=== PATIENT | female | born 1980 | race African-American/Black ===

== ENCOUNTER 2024-05-25 02:21 | Emergency (ER) | payer MEDICAID, SELFPAY ==
[~2024-05-25] VITALS: Ht 152.4 cm; Wt 82.0 kg
[2024-05-25 02:31] VITALS: BP 200/130; TEMP 97.7; O2SAT 99
[2024-05-25 05:23] VITALS: PULSE 88; RESP 18
[2024-05-25] MEDS: TETANUS, DIPHTHERIA, PERTUSSIS VAC/PF 0.5ML (>10YR OLD) IM ONE (06:02)
== END 2024-05-25 06:08 | disposition home or self-care (01) ==
LOC: ER 02:21
DX: S61.411A Laceration without foreign body of right hand, initial encounter (principal); W45.8XXA Other foreign body or object entering through skin, initial encounter; Y93.89 Activity, other specified; Y92.89 Other specified places as the place of occurrence of the external cause; Y99.8 Other external cause status
CPT/HCPCS: 73130; 90715; 12001; 90471; 99283; Z7610